=== PATIENT | male | born 1965 | race Caucasian/White ===

== ENCOUNTER → 2019-01-05 | Outpatient (CLI) | payer BC ==
[~2019-01-05] MED LIST: GABA-843 PO; HYDR-4571 PO; LIDOCAINE 2% MDV 20 ML VIAL As Ordered ONE; MIDAZOLAM INJ 2 MG/2 ML VIAL (J2250) As Ordered ONE; MM S100C PO; ONDA8TAB8 PO; PROC10TA4 PO; XARE15TA PO; XARE20TA PO; ceFAZolin 1GM INJ (J0690 PER 500MG) As Ordered ONE; diphenhydrAMINE INJ 50MG/ML VIAL (J1200) As Ordered ONE; fentaNYL 100 MCG/2 ML INJECTION (J3010) As Ordered ONE
--- NOTE | 2019-01-05 07:38 | IRHP ---
[facility] IR Pre-Procedure H & P General Date of Service: Jan 05, 2019 Procedure: Same Day Surgery Interval History and Physical I have seen the patient and reviewed last H & P performed within 30 days. There is no significant interval change. Patient is stable for procedure. History of Present Illness Chief Complaint The patient is a 53-year-old male admitted with a reason for visit of Rectal Ca. PRE-PROCEDURE DIAGNOSIS: rectal ca HEART: normal rate. LUNGS: normal breathing. Allergies Coded Allergies: No Known Drug Allergies (Verified Allergy, Unknown, 12/21/18) Home Medications Scheduled Docusate Sodium (Stool Softener), 100 MG PO DAILYPRN, (Reported) Gabapentin (Gabapentin), 300 MG PO TID, (Reported) Hydrocodone/Acetaminophen (Hydrocodone-Acetamin 5-325 mg), 1 TAB PO PRN, (Reported) Rivaroxaban (Xarelto), 1 TAB PO BID, (Reported) VS, I&O, 24H, Fishbone Vital Signs/I&O Vital Signs Date Time Temp Pulse Resp B/P (MAP) Pulse Ox O2 Delivery O2 Flow Rate FiO2 01/05/19 07:15 97.1 70 18 97 TAVO FRAZIER MD Jan 05, 2019 07:38
[2019-01-05 10:59] VITALS: BP 126/75
--- NOTE | 2019-01-05 11:00 | POST-OPPD ---
Postoperative Procedure Note Date Of Procedure: Jan 05, 2019 Time Of Procedure: 10:59 PREOPERATIVE DIAGNOSIS: rectal ca POSTOPERATIVE DIAGNOSIS: rectal ca FINDINGS: patent right IJ PROCEDURE: right side port SURGEON: marco ANESTHESIA: moderate sedation ESTIMATED BLOOD LOSS: < 15 ml COMPLICATIONS: none POSTOPERATIVE CONDITION: stable TAVO FRAZIER MD Jan 05, 2019 11:00
--- NOTE | 2019-01-05 16:33 | REP ---
IR Ultrasound and fluoroscopy-guided port placement. IR Ultrasound of the neck. IR Moderate sedation. Clinical information: Rectal cancer . Physician: Dr. Corbin. Procedure: The patient was advised of the benefits, risks, and alternatives of the procedure and informed consent was obtained. A time-out was performed with verification of the patient's name, MRN, site of procedure and type of procedure to be performed. The patient was positioned in the supine position on the angiographic table. The site was prepped and draped in the usual sterile fashion. Moderate sedation was performed by the physician including the presence of an independent trained observer who assisted and monitored the patient's level of consciousness and physiologic status. Following the administration of fentanyl and Versed , the physician spent 45 minutes of continuous face to face time with the patient. Ultrasound of the neck reveals a patent and compressible right internal jugular vein. A director market intelligence radiograph reveals no pertinent abnormality. The neck and anterior chest wall were anesthetized with lidocaine. The right internal jugular vein was accessed using a microintroducer needle by a lateral approach. An 018 wire was advanced into the superior vena cava, the needle was removed and a microsheath was placed. An Amplatz wire was then passed into the inferior vena cava. An incision at the internal jugular vein access site and anterior chest wall were made using a scalpel. An incision was made at the anterior chest wall. A small pocket was created using a combination of blunt and sharp dissection. A tunneling device was then used to pass the catheter from the pocket to the neck puncture site. An 8-Cymraes Angiodynamics Smart power port was then positioned in the pocket. The catheter was then measured and cut. The introducer sheath was exchanged for a peel-away sheath. The catheter was passed through the peel-away sheath into the internal jugular vein and the peel-away sheath was removed. The port tip was positioned at the cavoatrial junction. The port was then accessed with a Brito needle. The port flushes and aspirates well. The puncture site in the neck was closed. The chest wall incision was then closed with 2-0 Vicryl and 4-0 Monocryl. Glue and Steri-Strips were applied. A sterile dressing was then applied. The patient tolerated the procedure well and was returned to the PRU in stable condition. Estimated blood loss: <5 ml. Complications: None. Conclusion: 1. Successful placement of an 8-Cymraes Angiodynamics Smart power port via the right internal jugular vein. The port is ready for immediate use. 2. Patient to follow up in IR clinic in 2 weeks. Thank you for this referral. Electronically Signed by Mackenzie Corbin MD 01/05/2019 04:32 P
== END ==
LOC: M IRPRO 07:01
PROVIDERS: ATTEND Radiology Diagnostic Radiology
DX: C20 Malignant neoplasm of rectum (principal)
CPT/HCPCS: 36563; 76937; 77001; 99152; 99153; C1769; C1788; C1894; J0690; J1200; J2250; J3010

== ENCOUNTER → 2019-10-16 | Outpatient (CLI) | payer BC ==
[~2019-10-16] MED LIST changes: -LIDOCAINE 2% MDV 20 ML VIAL As Ordered ONE; -MIDAZOLAM INJ 2 MG/2 ML VIAL (J2250) As Ordered ONE; -ceFAZolin 1GM INJ (J0690 PER 500MG) As Ordered ONE; -diphenhydrAMINE INJ 50MG/ML VIAL (J1200) As Ordered ONE; -fentaNYL 100 MCG/2 ML INJECTION (J3010) As Ordered ONE
--- NOTE | 2019-10-16 15:37 | REP ---
PET/CT: HISTORY: Restaging rectal carcinoma. The patient is status post low anterior resection. Multiple small pulmonary nodules on chest CT. COMPARISONS: Comparison CT abdomen pelvis and chest September 19, 2019. No comparison PET/CT study. TECHNIQUE: 45 minutes following the intravenous injection of a 8.91 mCi dose of F-18 FDG, three-dimensional PET scintigraphy is acquired from the skull base to the proximal thighs. Triplanar noncontrast CT scanning is acquired through the same anatomic range for attenuation correction, and image registration with scan parameters optimized to minimize radiation exposure to the patient. PET scintigraphy and CT datasets were fused and displayed on a workstation with multiplanar and projection display capability. PET/CT FINDINGS: Head and neck soft tissues are unremarkable. There is a right-sided Urtrjm-B-Weti catheter. There is no evidence of hypermetabolic hilar or mediastinal adenopathy. No pulmonary parenchymal hypermetabolic uptake is seen. The scattered pulmonary nodules are predominately quite small and many are calcific in density. No evidence of pleural effusion. No new pulmonary parenchymal finding is seen. In the abdomen and pelvis, there is normal hepatic and splenic uptake. No abnormal hepatic or splenic focus is seen. There is no evidence of hypermetabolic retroperitoneal jackson uptake. A right lower quadrant enterostomy is seen. No abnormal hypermetabolic uptake is observed. IMPRESSION: Negative PET scintigraphy. Electronically Signed by Alex Pollard MD 10/17/2019 08:10 A
== END ==
LOC: M PLARAD 09:36
PROVIDERS: ATTEND Internal Medicine Medical Oncology
DX: C20 Malignant neoplasm of rectum (principal)
CPT/HCPCS: 78815; A9552

== ENCOUNTER → 2019-10-29 | Outpatient (REF) | payer BC | LOC: M LAB REF 17:08 | PROVIDERS: ATTEND Physician Assistant | DX: L82.1 Other seborrheic keratosis (principal) ==

== ENCOUNTER → 2020-01-23 | Outpatient (CLI) | payer BC ==
[~2020-01-23] MED LIST changes: +GASTROGRAFIN SOLUTION 30ML (Q9963) As Ordered ONE; +ISOVUE-370 76% 100ML VIAL As Ordered ONE
--- NOTE | 2020-02-11 10:22 | REP ---
CT CHEST WITH INTRAVENOUS (IV) CONTRAST: (REPEAT DICTATION) HISTORY: Follow-up of chest nodules. History of stage III rectal carcinoma for surveillance. COMPARISON: Chest CT study 09/19/2019. There is a comparison chest CT from 07/14/[address] CONTRAST DOSE: 100 mL of intravenous Isovue-[address] FINDINGS: Preliminary digital loop sewer radiograph demonstrates a hazy nodular density in the right upper lung zone medially. There is an Infusaport catheter in place via the right. Lung window settings demonstrate multiple new pulmonary nodular densities in a peribronchovascular distribution predominantly in the right upper lobe, but also in the superior segment of the right lower lobe. These measure up to 2.6 cm in greatest diameter. They are compatible with pulmonary metastatic foci. There are also scattered stable small calcified and noncalcified granulomatous nodules. No hilar or mediastinal mass is seen. No axillary or supraclavicular adenopathy is observed. Right-sided Infusaport catheter is noted. No pleural or pericardial effusion is seen. IMPRESSION: Multiple new pulmonary nodules predominantly right upper lobe, but also right lower lobe superior segment suspicious for metastatic disease. These range in size up to 2.6 cm. MTDD
--- NOTE | 2020-02-11 10:23 | REP ---
CT ABDOMEN AND PELVIS WITH INTRAVENOUS (IV) AND ORAL CONTRAST: (REPEAT DICTATION) HISTORY: Stage III rectal carcinoma. COMPARISON: CT study 09/19/2019. CT CONTRAST DOSE: 100 mL of intravenous Isovue-[address] FINDINGS: Dual-phase postcontrast imaging shows no focal liver mass lesion. There is mild diffuse fatty infiltration. There is a granuloma calcification in the left lower lobe unchanged. The spleen is homogeneous. There is a tiny accessory splenule. Normal adrenal glands are observed. No abnormality is noted in the gallbladder or in the pancreas. No retroperitoneal mass or adenopathy is observed. A retroaortic left renal vein is observed incidentally. No renal mass or hydronephrosis is seen. Tiny cortical cyst. No periaortic adenopathy is observed. Normal caliber aorta is seen. Postoperative fibrosis right anterior mid abdominal wall. There is anastomotic suture line low in the rectum suggesting low anterior resection. Seminal vesicle, prostate, and urinary bladder are intact. No pelvic mass or adenopathy is observed. No inguinal adenopathy is seen. No abdominal wall defect is observed. There are degenerative disc changes in the lower lumbar spine. No bony destructive lesion. IMPRESSION: Postoperative changes low in the rectum consistent with low anterior resection. Mild diffuse fatty infiltration of the liver. No evidence of intraabdominal mass or adenopathy. MTDD
== END ==
LOC: M RAD 10:55
PROVIDERS: ATTEND Internal Medicine Medical Oncology
DX: R91.8 Other nonspecific abnormal finding of lung field (principal)
CPT/HCPCS: 71260; 74177; Q9963; Q9967

== ENCOUNTER → 2020-02-12 | Outpatient (CLI) | payer BC ==
[~2020-02-12] MED LIST changes: -GASTROGRAFIN SOLUTION 30ML (Q9963) As Ordered ONE; -ISOVUE-370 76% 100ML VIAL As Ordered ONE; +LIDOCAINE 1% MDV 20ML VIAL As Ordered ONE
[2020-02-12 11:58] VITALS: BP 142/82
--- NOTE | 2020-02-15 09:07 | REP ---
CHEST X-RAY: SINGLE PA VIEW HISTORY: Post CT guided needle biopsy right lower lobe nodule. FINDINGS: Right-sided Iemlqu-M-Smyt catheter is seen in place. There is increased density in the right perihilar and right hilar region consistent with the nodule seen on CT. There is no evidence of pneumothorax or hydrothorax. IMPRESSION: No complication identified. MTDD
--- NOTE | 2020-02-15 14:02 | REP ---
CT RIGHT UPPER LOBE LUNG BIOPSY The procedure was performed by ANDREINA Lopez, under the direct supervision of Dr. Pollard. The risks and benefits of the procedure were explained to the patient and an informed consent was obtained both verbally and written. Directly prior to the start of the procedure, a formal time-out was completed in the procedure room. One of the several right upper lobe lung nodules was localized using CT guidance. The skin was prepped and draped in a sterile fashion. Approximately 5 mL of 1% Lidocaine 10 mg/mL was used as a local anesthetic. Using CT guidance, 19-20 gauge coaxial needle biopsy system was inserted and advanced into the nodule. Six core biopsy samples were obtained and sent to the lab for further analysis. Postprocedural imaging showed no evidence of a pneumothorax. After the appropriate amount of monitored convalescence, the patient was discharged from the department. YARIEL
== END ==
LOC: M IRPRO 07:59
PROVIDERS: ATTEND Internal Medicine Medical Oncology
DX: J18.9 Pneumonia, unspecified organism (principal)

== ENCOUNTER → 2020-04-09 | Outpatient (CLI) | payer BC ==
[~2020-04-09] MED LIST changes: -LIDOCAINE 1% MDV 20ML VIAL As Ordered ONE
== END ==
LOC: M LABSMTC 10:32
PROVIDERS: ATTEND Pediatrics
DX: Z11.59 Encounter for screening for other viral diseases (principal)

== ENCOUNTER → 2020-10-13 | Outpatient (CLI) | payer BC ==
[~2020-10-13] MED LIST changes: +GABA-282 PO; -GABA-843 PO; +GASTROGRAFIN SOLUTION 30ML (Q9963) As Ordered ONE; +ISOVUE-370 76% 100ML VIAL As Ordered ONE
--- NOTE | 2020-10-14 10:07 | REP ---
INDICATION: RECTAL CA COMPARISON: 01/23/2020 TECHNIQUE: Axial contrast enhanced images from the thoracic inlet to the upper abdomen with coronal and sagittal reformations using 100 ml Isovue 370 intravenous contrast material followed by CT of the abdomen and pelvis. Coronal and sagittal reformations obtained This CT examination was performed using the following dose reduction techniques: Automated exposure control, adjustment of mA and/or kv according to the patient's size, and use of iterative reconstruction technique. FINDINGS: Lung katz are well aerated. Few scattered small calcified and noncalcified nodules measuring up to 4 mm are identified bilaterally and similar to prior examination. The previously noted multifocal metastatic foci appear to have resolved. No acute consolidation, new significant nodule/mass, or pleural effusion. No pneumothorax. Tracheobronchial tree is patent. No significant axillary, hilar, or mediastinal adenopathy. Mediastinum demonstrates normal thoracic aorta, pulmonary vasculature, and heart/pericardium. Musculoskeletal structures are intact and without acute osseous abnormality. Limited upper abdomen demonstrates normal bilateral adrenal glands. IMPRESSION: 1. Previously identified metastatic foci have resolved. 2. Stable small noncalcified and calcified nodules up to 4 mm suggesting prior granulomatous disease. 3. No acute mediastinal or pleuroparenchymal process appreciated. <Electronically signed by Jonathan Escalona > 10/14/20 [id number]
--- NOTE | 2020-10-14 10:25 | REP ---
INDICATION: RECTAL CA. COMPARISON: 01/23/2020 TECHNIQUE: Axial contrast-enhanced images from the lung bases to the pubic symphysis using oral and 100 cc Isovue 370 intravenous contrast material. Delayed images of the abdomen along with coronal and sagittal reformations obtained. This CT examination was performed using the following dose reduction techniques: Automated exposure control, adjustment of mA and/or kv according to the patient's size, and the use of iterative reconstruction technique. FINDINGS: Hepatosteatosis noted without focal hepatic lesion. Spleen, pancreas, gallbladder, bilateral adrenal glands and kidneys are normal. The enteric system demonstrates surgical anastomosis in the right lower quadrant as well as evidence for surgical anastomosis at the rectosigmoid level. There is no bowel obstruction or acute inflammatory process. Surgical sites appear relatively clean/normal. Pelvis demonstrates normal bladder and age-appropriate prostate/seminal vesicles. Small nonspecific pelvic sidewall lymph nodes measuring up to 9 mm are similar to prior examination and nonspecific. No pelvic fluid or ascites. Small fat containing inguinal hernias noted (left greater than right). No ascites. No free air. Abdominal aorta and vasculature appear normal. Musculoskeletal structures are intact and without acute osseous abnormality. IMPRESSION: No acute abdominopelvic pathology appreciated. Few nonspecific pelvic sidewall lymph nodes up to 9 mm similar to prior examination. No obvious evidence for metastatic disease or recurrence. <Electronically signed by Jonathan Escalona > 10/14/20 1025
== END ==
LOC: M RAD 12:30
PROVIDERS: ATTEND Internal Medicine Medical Oncology
DX: C20 Malignant neoplasm of rectum (principal); R91.8 Other nonspecific abnormal finding of lung field
CPT/HCPCS: 71260; 74177; Q9963; Q9967

== ENCOUNTER → 2021-04-23 | Outpatient (CLI) | payer BC ==
--- NOTE | 2021-04-23 14:30 | REP ---
INDICATION: RECTAL CANCER COMPARISON: Multiple the latest 10/13/2020 also with contrast TECHNIQUE: Standard helical technique after the intravenous administration of 100 cc Isovue 370 FINDINGS: The mediastinum and pulmonary anoop are stable. No mass or adenopathy has developed. There are no pleural or pericardial effusions. For description of the imaged upper abdomen see abdominal and pelvic CT made same day. Evaluation of the osseous structures shows no significant changes compared to the prior exam. Evaluation of the lung katz shows numerous stable appearing calcified and noncalcified nodules. No definite new abnormal nodules or spiculated lesions have developed. IMPRESSION: Stable CT examination of the chest. <Electronically signed by Law Randolph > 04/23/21 [id number]
--- NOTE | 2021-04-23 14:34 | REP ---
INDICATION: RECTAL CA. COMPARISON: Multiple the latest 10/13/2020 TECHNIQUE: Standard helical technique after the intravenous administration of 100 cc Isovue 370. Oral bowel preparatory contrast was administered prior to the exam. FINDINGS: The liver, gallbladder, spleen, pancreas, adrenal glands, and kidneys are unchanged. The abdominal aorta and para-aortic regions are unchanged. There is no significant change in appearance the bowel loops or the mesenteries. No mass or adenopathy has developed. There is no free fluid or free air. Postoperative changes are seen in the pelvis status quo. Nonenlarged pelvic sidewall and inguinal lymph nodes are noted status quo. No adenopathy has developed. Bone window technique throughout the examination shows no acute osseous changes. IMPRESSION: Stable exam. There is no evidence of acute disease. <Electronically signed by Law Randolph > 04/23/21 [id number]
== END ==
LOC: M RAD 12:26
PROVIDERS: ATTEND Internal Medicine Medical Oncology
DX: C20 Malignant neoplasm of rectum (principal)
CPT/HCPCS: 71260; 74177; Q9963; Q9967

== ENCOUNTER → 2022-04-27 | Outpatient (CLI) | payer BC ==
[~2022-04-27] MED LIST changes: -GASTROGRAFIN SOLUTION 30ML (Q9963) As Ordered ONE; +GASTROGRAFIN SOLUTION 30ML As Ordered ONE; -PROC10TA4 PO; +PROC10TA5 PO
== END ==
LOC: M RAD 08:58
PROVIDERS: ATTEND Internal Medicine Medical Oncology
DX: C20 Malignant neoplasm of rectum (principal)

== ENCOUNTER → 2022-06-08 | Outpatient (POV) | payer BC ==
[~2022-06-08] VITALS: Ht 180.3 cm; Wt 101.3 kg
[~2022-06-08] MED LIST changes: -GASTROGRAFIN SOLUTION 30ML As Ordered ONE; -ISOVUE-370 76% 100ML VIAL As Ordered ONE
[2022-06-08 15:15] VITALS: BP 135/87
== END ==
LOC: M IRPOV 15:05
PROVIDERS: ATTEND Radiology Diagnostic Radiology
DX: Z45.2 Encounter for adjustment and management of vascular access device (principal); Z91.040 Latex allergy status

== ENCOUNTER → 2022-07-26 | Outpatient (CLI) | payer BC | LOC: M LABSMTC 10:55 | PROVIDERS: ATTEND Anesthesiology | DX: Z01.818 Encounter for other preprocedural examination (principal); Z11.52 Encounter for screening for COVID-19 ==

== ENCOUNTER → 2022-07-29 | Outpatient (CLI) | payer BC ==
[~2022-07-29] VITALS: Ht 180.3 cm; Wt 101.2 kg
[~2022-07-29] MED LIST changes: +LIDOCAINE 1% MDV 20ML VIAL As Ordered ONE; +MIDAZOLAM INJ 2MG/2ML VIAL As Ordered ONE; +NS 1,000 ML IV SCH; +ceFAZolin 2 GM/D5W 50 ML IV BAG As Ordered ONE; +ceFAZolin SOD 2 GM in IV 1 EA IV ONE; +diphenhydrAMINE 50MG/ML VIAL As Ordered ONE; +fentaNYL 100 MCG/2 ML INJECTION As Ordered ONE
[2022-07-29 14:55] VITALS: BP 151/93
== END ==
LOC: M IRPRO 10:26
PROVIDERS: ATTEND Radiology Diagnostic Radiology
DX: C18.9 Malignant neoplasm of colon, unspecified (principal); Z91.040 Latex allergy status
CPT/HCPCS: 36590; 99152; 99153; J0690; J1200; J2250; J3010

== ENCOUNTER → 2022-08-24 | Outpatient (POV) | payer BC ==
[~2022-08-24] VITALS: Ht 180.3 cm; Wt 101.3 kg
[~2022-08-24] MED LIST changes: -LIDOCAINE 1% MDV 20ML VIAL As Ordered ONE; -MIDAZOLAM INJ 2MG/2ML VIAL As Ordered ONE; -NS 1,000 ML IV SCH; -ceFAZolin 2 GM/D5W 50 ML IV BAG As Ordered ONE; -ceFAZolin SOD 2 GM in IV 1 EA IV ONE; -diphenhydrAMINE 50MG/ML VIAL As Ordered ONE; -fentaNYL 100 MCG/2 ML INJECTION As Ordered ONE
[2022-08-24 13:05] VITALS: BP 140/88
== END ==
LOC: M IRPOV 12:57
PROVIDERS: ATTEND Radiology Diagnostic Radiology
DX: Z45.2 Encounter for adjustment and management of vascular access device (principal); Z91.048 Other nonmedicinal substance allergy status

== ENCOUNTER → 2023-06-01 | Outpatient (CLI) | payer BC ==
[~2023-06-01] MED LIST changes: +GASTROGRAFIN SOLUTION 30ML As Ordered ONE; +ISOVUE-370 76% 100ML VIAL As Ordered ONE
== END ==
LOC: M RAD 12:31
PROVIDERS: ATTEND Internal Medicine Medical Oncology
DX: C20 Malignant neoplasm of rectum (principal)
CPT/HCPCS: 71260; 74177; Q9963; Q9967

== ENCOUNTER → 2023-06-30 | Outpatient (CLI) | payer BC ==
[~2023-06-30] VITALS: Ht 180.3 cm; Wt 109.1 kg
[~2023-06-30] MED LIST changes: -GASTROGRAFIN SOLUTION 30ML As Ordered ONE; -ISOVUE-370 76% 100ML VIAL As Ordered ONE; +NORP10TA2 PO
[2023-06-30 14:50] VITALS: BP 147/89; O2SAT 97
== END ==
LOC: M PAL 14:23
PROVIDERS: ATTEND Nurse Practitioner Adult Health
DX: G62.0 Drug-induced polyneuropathy (principal); C20 Malignant neoplasm of rectum; Z51.5 Encounter for palliative care; Z80.0 Family history of malignant neoplasm of digestive organs; Z80.8 Family history of malignant neoplasm of other organs or systems; Z87.891 Personal history of nicotine dependence; Z90.49 Acquired absence of other specified parts of digestive tract; Z91.040 Latex allergy status; Z92.21 Personal history of antineoplastic chemotherapy; Z96.653 Presence of artificial knee joint, bilateral

== ENCOUNTER → 2024-08-28 | Outpatient (CLI) | payer BC ==
[~2024-08-28] MED LIST changes: +GABA-1172 PO; -GABA-282 PO; +ISOVUE-370 76% 100ML VIAL As Ordered ONE; +ONDA-284 PO; -ONDA8TAB8 PO
== END ==
LOC: M RAD 15:28
PROVIDERS: ATTEND Internal Medicine Medical Oncology
DX: C20 Malignant neoplasm of rectum (principal); J84.10 Pulmonary fibrosis, unspecified
CPT/HCPCS: 71260; 74177; Q9967